=== PATIENT | male | born 1945 | race Caucasian/White ===

== ENCOUNTER 2017-03-28 07:10 | Emergency (ER) | payer BC, MEDICARE ==
--- NOTE | 2017-03-28 07:24 | ERNOTE ---
Chest Pain/Cardiac HPI Date of Service: 03/28/17 Chief Complaint: Chest Pain Time Seen by Provider: 03/28/17 07:22 Immunizations: IMMUNIZATION HX Immunizations Up to Date Yes Allergies/Adverse Reactions: Allergies No Known Allergies Allergy (Verified 03/28/17 07:20) Home Medications: HOME MEDICATIONS Amlodipine Besylate 10 mg PO DAILY 03/28/17 [Last Taken Unknown] Hydrochlorothiazide [Hydrodiuril] 25 mg PO DAILY 03/28/17 [Last Taken Unknown] Quinapril HCl [Accupril] 40 mg PO DAILY 03/28/17 [Last Taken Unknown] metFORMIN HCL [Glucophage] 500 mg PO BIDWM 03/28/17 [Last Taken Unknown] Narrative: This is a 71-year-old male who comes to the emergency department complaining of epigastric discomfort. He says this feels like indigestion. He developed this last night around 10 PM. He had eaten a few hours before this. He says he's had intermittently the same symptoms over the last 6 weeks. He said typically when he gets up and walks around he gets better. It only occurs at night when he is laying down. The episode today however is different, last night when he tried to get up and move around make it better it did not get better. This morning it did not get better. He is complaining of a bit of pain in both arms to the bicep area. He has no shortness of breath no nausea or vomiting no dizziness no diaphoresis. He does have high blood pressure he does have diabetes he does not believe that he has high cholesterol he does not smoke he does have a family history of early cardiac disease he has no personal history of coronary disease. He was given nitroglycerin and aspirin in route. This did not have a significant impact on his symptoms Review of Systems - Review of Systems Constitutional: Present: no symptoms reported EYE: Present: no symptoms reported ENT: Present: no symptoms reported Respiratory: Present: no symptoms reported Cardiology: Present: See HPI Gastrointestinal/Abdominal: Present: See HPI Genitourinary: Present: no symptoms reported Musculoskeletal: Present: no symptoms reported Skin: Present: no symptoms reported Neurological: Present: no symptoms reported Endocrine: Present: no symptoms reported Hematologic/Lymphatic: Present: no symptoms reported Psych: Present: no symptoms reported All Other Systems: All systems neg except as marked - Patient's Past Medical History Patient History - Medical: GERD Patient History - Cardiac/Respiratory: Hypertension Patient History - Cancer: No Hx of Cancer Patient History - Other: None - Social History Smoking Status: Never smoker Have you smoked in the past 12 months: No - Immunizations Immunizations Up to Date: Yes Physical Exam - Physical Exam General Appearance: Present: wd/wn, alert, no apparent distress Head Exam: Present: normal inspection, no evidence of injury Eye Exam: Normal inspection: bilateral, PERRL: bilateral Ears, Nose, Throat: Present: normal ENT inspection, normal pharynx Neck: Present: normal inspection, nontender Respiratory: Present: no respiratory distress, normal breath sounds, lungs clear Cardiovascular/Chest: Present: regular rate, rhythm, no murmur, normal peripheral pulses Gastrointestinal/Abdominal: Present: normal bowel sounds, nontender, nondistended, soft, no organomegaly Back Exam: Present: normal inspection, normal range of motion, no CVA tenderness , no vertebral tenderness Extremity Exam: Present: normal inspection, non-tender, normal range of motion, no edema Neurological Exam: Present: alert, oriented, normal mood/affect, no motor/ sensory deficits Skin Exam: Present: normal color, warm/dry Lymphatic Exam: Present: no adenopathy ED Progress - Results and Orders Patient's Lab Results:: I have reviewed the patient's lab results. - Vital Signs Patient's Vital Signs:: I have reviewed the patient's vital signs. Vital Signs: Vital Signs 03/28/17 07:10 Pulse Rate 97 Respiratory 12 Rate Blood Pressure 205/100 O2 Sat by Pulse 98 Oximetry - EKG EKG: NSR EKG read: Interp. by me EKG Comments: Normal sinus rhythm left axis normal intervals artifact makes interpretation of 12 and [address] segment changes T waves look normal may be biphasic in aVL again lead 1 cannot be assessed - Progress/Reassessment Chief Complaint: Chest Pain Plan - Plan Plan: This 71-year-old has had epigastric fullness episodically for 6 weeks. The episode that he is coming in for today which did not resolve his usual has been present since 10:00 last night. It has not changed in severity or location. One would expect if his symptoms were due to acute coronary syndrome that the first set of enzymes done here would be elevated. I do not believe that a second set will be necessary The patient has a troponin of 0.195. Although this is not not high enough to call us a non-ST elevation SC with his symptoms and risk factor coupled with his elevation I believe he needs to be further evaluated. He'll almost certainly need cardiac catheterization. M: Patricia to have him transferred. I'm going to start heparin Departure Clinical Impression: Unstable angina - Departure Disposition: [facility] Condition: Fair Referrals: Mac Quezada MD [Primary Care Provider] -
[2017-03-28 07:41] LABS: Hematocrit 42.9 % (42.0-52.0); Hemoglobin 15.1 gm/dL (13.5-18.0); Mean Cell Volume 88.1 fl (78-100); Mean Corpuscular Hgb Conc 35.2 g/dl (32-36); Mean Platelet Volume 10.4 fl (6.0-9.5); Neutrophil # 4.8 K/mm3 (1.3-6.0); Neutrophil % 60.1 % (42-75.0); Platelet Count 201 K/mm3 (150-450); Red Blood Count 4.87 M/mm3 (4.7-6.0); Red Cell Distribution Width 12.6 % (11.5-14.0)
[2017-03-28 07:59] LABS: Albumin * 3.6 gm/dl (3.4-5.0); Anion Gap 13.7 mmol/L (6.8-13.8); BUN/Creatinine Ratio 15.4 (9.0-21.6); Bilirubin, Total 0.6 mg/dL (0.0-1.1); Ca. Corrected For Albumin 9.3 mg/dL (8.4-10.2); Calcium * 9.3 mg/dL (7.9-10.9); Potassium 3.7 mmol/L (3.4-4.6); Total Protein 7.5 gm/dL (6.2-8.2)
[2017-03-28 08:01] LABS: Troponin I 0.159 ng/ml (0.00-0.10)
[2017-03-28] MEDS ORDERED: HEPARIN SODIUM,PORCINE 5,000 UNITS/ML VIAL IV ONE (08:07)
[2017-03-28] MEDS ORDERED: ENALAPRILAT DIHYDRATE 2.5 MG/2 ML VIAL IV ONE ×2 (08:10→08:13)
[2017-03-28] MEDS ORDERED: NITROGLYCERIN 1 INCH PACKET TD ONE ×2 (08:10→08:12)
[2017-03-28] MEDS ORDERED: METOPROLOL TARTRATE 25 MG TABLET PO ONE (08:10)
[2017-03-28] MEDS ORDERED: HEPARIN SODIUM,PORCINE/D5W 25,000 UNITS/500 ML BAG IV ONE (08:11)
[2017-03-28] MEDS ORDERED: HEPARIN SODIUM,PORCINE 5,000 UNITS/ML VIAL ONE (08:11)
[2017-03-28] MEDS ORDERED: METOPROLOL TARTRATE 25 MG TABLET ONE (08:13)
[2017-03-28] MEDS ORDERED: HEPARIN SODIUM,PORCINE/D5W 25,000 UNITS/500 ML BAG IV SCH (08:15)
[2017-03-28 08:21] LABS: Partial Thrombolplastin Time 24.7 Seconds (24-32)
[2017-03-28 08:29] VITALS: BP 201/103
== END 2017-03-28 08:28 | disposition short-term general hospital (02) ==
LOC: ER 07:10
DX: I20.0 Unstable angina (principal); I10 Essential (primary) hypertension